=== PATIENT | female | born 1975 | race Caucasian/White ===

== ENCOUNTER 2016-11-10 02:56 | Emergency (ER) | payer SELFPAY ==
[~2016-11-10] VITALS: Ht 170.2 cm; Wt 81.0 kg
[2016-11-10 02:58] VITALS: BP 132/82; PULSE 99; RESP 16; TEMP 98.7; O2SAT 100
[2016-11-10] MEDS ORDERED: ACETAMINOPHEN/HYDROcodone 325 MG/5 MG TAB PO ONE (03:30)
--- NOTE | 2016-11-10 03:53 | PD ---
HPI Chief Complaint: Injury Time Seen by Provider: 03:16 Travel History International Travel<30 days: No Contact w/Intl Traveler<30days: No Traveled to known affect area: No History of Present Illness HPI So 40 year-old woman who presents to the emergency department complaining of left foot pain. She states she fell off a barstool and landed on her left foot. She has severe pain across the dorsum of her mid foot. She is a number exactly how she landed or how her foot was positioned. Denies history of previous significant left foot injuries. History Past Medical History Narrative Medical Hypothyroidism LMP: 10/25/16 Social History Tobacco Use: No Allergies-Medications (Allergen,Severity, Reaction): Coded Allergies: codeine (Verified Allergy, Severe, Rash, 11/10/16) penicillin V (Verified Allergy, Severe, Swelling, 11/10/16) Review of Systems Except as stated in HPI: all other systems reviewed are Neg Physical Exam Narrative GENERAL: Well-appearing 40 year-old woman, uncomfortable but nontoxic. SKIN: Warm and dry. CARDIOVASCULAR: Warm and well perfused. RESPIRATORY: Normal rate and effort. MUSCULOSKELETAL: Focused examination of the left foot reveals normal gross appearance of the foot. Is no obvious swelling ecchymosis bruising or deformity. She has significant tenderness over the dorsum of the foot. She has no tenderness in the ankle itself. She had pain with any range of motion of the foot. Good pulses. Good Capillary refill. NEUROLOGICAL: Awake and alert. No gross deficits. Data Data Last Documented VS Vital Signs Date Time Temp Pulse Resp B/P (MAP) Pulse Ox O2 Delivery O2 Flow Rate FiO2 11/10/16 03:25 Room Air 11/10/16 02:58 98.7 99 16 132/82 (99) 100 Orders Orders Acetamin-Hydrocod 325-5 Mg ([place] 5-325 (11/10/16 03:30) Foot, Complete ([id number]) (11/10/16 ) Naproxen (Naprosyn) (11/10/16 04:45) Mandatory Outpatient Referral (11/10/16 04:41) [facility] Medical Decision Making Medical Screen Exam Complete: Yes Emergency Medical Condition: Yes Interpretation(s) X-ray negative Differential Diagnosis Injury, ankle injury, midfoot injury, ligamentous injury, other Narrative Course Medical decision making INITIAL cause a 40 year-old woman presents to the emergency department of left foot injury. She has significant tenderness with the dorsum of foot. Unclear exactly what the mechanics of the injury were. We'll check x-ray. Likely splint and nonweightbearing and repeat out imaging as an outpatient for evaluation for possible ligamentous midfoot injury. Diagnosis Primary Impression: Left foot pain Additional Instructions: Do not bear weight on the left foot until cleared by podiatry. Follow-up with podiatry at the first available appointment. Keep leg elevated above your heart to reduce swelling. Take Naprosyn and Lortab as prescribed for pain. Med/Other Pt SpecificInfo: Prescription(s) given Scripts Hydrocodone-Acetaminophen (Lortab) 5-325 Mg Tab 1-2 TAB PO Q6H Y for PAIN, #21 TAB 0 Refills Prov: Andrea Patterson MD 11/10/16 Naproxen (Naproxen) 500 Mg Tab 500 MG PO BID for 14 Days, #28 TAB 0 Refills Prov: Andrea Patterson MD 11/10/16 Disposition: 01 DISCHARGE HOME Condition: Stable Andrea Patterson MD Nov 10, 2016 03:53
--- NOTE | 2016-11-10 04:20 | RADRPT ---
EXAM DATE/TIME: 11/10/2016 03:24 [place] COMPARISON: No previous studies available for comparison. INDICATIONS : Trauma, pain in left foot. MEDICAL HISTORY : None. SURGICAL HISTORY : None. ENCOUNTER: Initial ACUITY: 1 day PAIN SCORE: 10/10 LOCATION: Left foot FINDINGS: Three view examination of the left foot demonstrates no soft tissue swelling, dislocation, or fractur e. The tarsal bones appear intact. The interphalangeal and metatarsophalangeal joints are intact. The calcaneus is intact. Bony mineralization is normal. CONCLUSION: No acute fracture. Alexandru Padron MD on November 10, 2016 at 4:18 Board Certified Radiologist. This report was verified electronically.
[2016-11-10] MEDS ORDERED: NAPROXEN 500 MG TAB PO ONE (04:45)
[2016-11-10] MEDS ORDERED: HYDR-3533 PO (04:49)
[2016-11-10] MEDS ORDERED: NAPR500T PO (04:49)
== END 2016-11-10 05:19 | disposition home or self-care (01) ==
LOC: NEPE 02:56
DX: M79.672 Pain in left foot (principal); E03.9 Hypothyroidism, unspecified
CPT/HCPCS: 73630; 99283